=== PATIENT | female | born 1950 | race Caucasian/White ===

== ENCOUNTER → 2018-04-17 | Outpatient (CLI) | payer MEDICARE, BC ==
[2018-04-17 11:27] LABS: T4, Free (Free Thyroxine) 1.53 ng/dL (0.78-2.19)
== END | disposition home or self-care (01) ==
LOC: LABWHC1 10:20
PROVIDERS: ATTEND Otolaryngology
DX: E04.1 Nontoxic single thyroid nodule (principal)
CPT/HCPCS: 36415; 84439; 84443; 86376

== ENCOUNTER → 2018-04-20 | Outpatient (CLI) | payer MEDICARE, BC ==
--- NOTE | 2018-04-20 11:53 | US ---
EXAMINATION TYPE: US thyroid st tissue head/neck DATE OF EXAM: 04/20/2018 COMPARISON: NONE CLINICAL HISTORY: E04.1 Thyroid nodule. GLAND SIZE: Right Lobe: 5.3 x 1.4 x 1.7 cm Overall Parenchyma: homogenous Left Lobe: 4.1 x 1.6 x 1.8 cm Overall Parenchyma: homogeneous Isthmus Thickness: 0.4 cm NODULES RIGHT: # of nodules measured on right: 3 1. 0.9 X 0.5 x 0.8 cm hypoechoic solid nodule at the upper pole with well-defined margins; . This nodule is wider than tall and shows intranodular vascularity. Prior size: no prior 2. 0.4 X 0.2 x 0.4 cm hypoechoic solid nodule at the mid pole with well-defined margins; . This nod ule is wider than tall and shows no intranodular vascularity. Prior size: no prior 3. 0.5 X 0.3 x 0.5 cm hypoechoic solid nodule at the lower pole with well-defined margins; . This n odule is wider than tall and shows intranodular vascularity. Prior size: no prior LEFT: # of nodules measured on left: 1 1. 1.5 X 1.2 x 1.7 cm isoechoic mixed nodule at the lower pole with well-defined margins; . This n odule is wider than tall and shows intranodular vascularity. Prior size: ISTHMUS: # of nodules measured in the isthmus: 0 Bilateral neck scanned, no evidence of lymphadenopathy. Nodules as described. IMPRESSION: Nonspecific solid nodule left thyroid lobe. Consider tissue diagnosis.
== END | disposition home or self-care (01) ==
LOC: RADUSWWP 10:48
PROVIDERS: ATTEND Otolaryngology
DX: E04.1 Nontoxic single thyroid nodule (principal)
CPT/HCPCS: 76536

== ENCOUNTER 2018-05-04 06:59 | Day surgery (SDC) | payer MEDICARE, BC ==
[2018-05-04] MEDS ORDERED: ALPRAZolam 0.25 MG TAB PO ONE (08:41)
[2018-05-04 08:50] VITALS: RESP 18; TEMP 97.6
[2018-05-04 09:38] VITALS: BP 121/68; PULSE 60
--- NOTE | 2018-05-04 11:48 | US ---
EXAMINATION TYPE: US FNA thyroid DATE OF EXAM: 05/04/2018 COMPARISON: Ultrasound 04/20/2018 HISTORY: Thyroid nodule. Maximal barrier technique was utilized. After informed consent, skin overlying the lesion was locali zed with ultrasound and the overlying skin prepped and draped. Ultrasound was utilized using sterile technique. Lidocaine was used for local anesthesia. Five passes with a 25-gauge needle were made int o the nodule and aspirated specimen was submitted to cytology. Following the procedure hemostasis ac hieved. No immediate complication. The patient discharged in stable condition. IMPRESSION: STATUS POST ULTRASOUND GUIDED FINE NEEDLE ASPIRATION OF THYROID NODULE, PATHOLOGY IS PEND ING. THIS PROCEDURE WAS PERFORMED BY THE UNDERSIGNED.
== END 2018-05-04 09:50 | disposition home or self-care (01) ==
LOC: RADPROMAIN 06:59
PROVIDERS: ATTEND Otolaryngology
DX: E04.1 Nontoxic single thyroid nodule (principal)
CPT/HCPCS: 10022; 36415; 70553; 76942; 82565; 88173; 88305

== ENCOUNTER → 2018-05-04 | Outpatient (CLI) | payer MEDICARE, BC ==
--- NOTE | 2018-05-04 08:41 | MR ---
EXAMINATION TYPE: MR brain and iac wo/w con DATE OF EXAM: 05/04/2018 COMPARISON: None HISTORY: Tinnitus / Hearing loss / TECHNIQUE: Multiplanar, multisequence images of the brain and brainstem is performed without and with IV contras t, utilizing 7 mL intravenous Gadavist . FINDINGS: Diffusion weighted images demonstrate no evidence of a recent infarct or other diffusion ab normality. White matter: There are numerous bilateral areas of abnormal signal scattered throughout the white ma tter bilaterally. Changes of chronic sinusitis and nasal septal deviation noted. No midline shift or mass effect. The mastoid air cells are clear. There is no evidence of cerebellopontine angle mass. The ventricular system and cisternal spaces are normal in size and appearance. The brain volume is age appropriate. Midline structures demonstrate normal morphology. The craniocervical junction appears within normal limits. Post contrast images demonstrate no abnormal enhancement. The dural venous sinuses appear pa tent. There is mild prominence of the basilar tip. Pituitary gland is prominent measuring 8 mm. Homog eneous enhancement IMPRESSION: 1. No evidence of acoustic schwannoma or cerebellopontine angle mass. 2. Diffuse nonspecific white matter changes. Differential diagnosis includes remote microvascular isc hemia. Other etiologies including demyelinating process not entirely excluded. 3. Recommend MRA [place] to assess the basilar tip which demonstrates mild prominence.
== END | disposition home or self-care (01) ==
LOC: RADMRIMAIN 06:50
PROVIDERS: ATTEND Otolaryngology
DX: R90.89 Other abnormal findings on diagnostic imaging of central nervous system (principal)
CPT/HCPCS: 82565; 70553; 36415; A9581

== ENCOUNTER → 2018-05-29 | Outpatient (CLI) | payer MEDICARE, BC ==
--- NOTE | 2018-05-30 01:13 | MR ---
EXAMINATION TYPE: MR angio head wo con DATE OF EXAM: 05/29/2018 COMPARISON: 05/04/2018 HISTORY: F/U from Prior MRI of Brain TECHNIQUE: Time of flight images focusing on the [place] were performed without contrast. FINDINGS: There is arterial flow in the anterior middle and posterior cerebral arteries. There is art erial flow in the vertebrobasilar artery system. There is a bulbous tip of the basilar artery. This m easures 4.5 mm. The basilar artery measures 2.2 mm. No other aneurysmal change is seen. 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
== END | disposition home or self-care (01) ==
LOC: RADMRIMAIN 20:11
PROVIDERS: ATTEND Otolaryngology
DX: R49.0 Dysphonia (principal); I72.5 Aneurysm of other precerebral arteries
CPT/HCPCS: 70544

== ENCOUNTER → 2018-07-05 | Outpatient (CLI) | payer MEDICARE, BC ==
[2018-07-06 02:21] LABS: Parathyroid Hormone Intact 55.4 pg/mL (14.0-72.0)
[2018-07-06 02:26] LABS: Vitamin D 25 Hydroxy 28.3 ng/mL (30.0-100.0)
[2018-07-06 02:31] LABS: Albumin 4.3 g/dL (3.80-4.90); Albumin/Globulin Ratio 1.87 (1.20-2.10); Anion Gap 9.2 mmol/L (4.00-12.00); Carbon Dioxide 24.8 mmol/L (21.6-31.8); Globulin 2.3 g/dL (2.1-3.7); Potassium 4.6 mmol/L (3.5-5.5); Total Bilirubin 0.4 mg/dL (0.2-1.2); Total Protein 6.6 g/dL (6.2-8.2)
== END | disposition home or self-care (01) ==
LOC: LABWHC1 15:38
PROVIDERS: ATTEND Internal Medicine Endocrinology, Diabetes & Metabolism
DX: M81.0 Age-related osteoporosis without current pathological fracture (principal)
CPT/HCPCS: 36415; 80053; 82306; 82523; 83970; 84443

== ENCOUNTER → 2018-12-03 | Outpatient (CLI) | payer MEDICARE, BC ==
--- NOTE | 2018-12-03 10:59 | US ---
EXAMINATION TYPE: US thyroid st tissue head/neck DATE OF EXAM: 12/03/2018 COMPARISON: US 04/20/2018 CLINICAL HISTORY: E04.1 Nontoxic single thyroid nodule. GLAND SIZE: Right Lobe: 5.3 x 1.5 x 1.5 cm Overall Parenchyma: homogenous Left Lobe: 4.3 x 1.5 x 1.7 cm Overall Parenchyma: homogeneous Isthmus Thickness: 0.4 cm NODULES RIGHT: # of nodules measured on right: 4 1. 1.0 X 0.4 x 0.7 cm hypoechoic solid nodule at the upper pole with well-defined margins; . This nodule is wider than tall and shows intranodular vascularity. Prior size: 0.9 x 0.5 x 0.8 cm likely under measured on prior exam 2. 0.4 X 0.2 x 0.4 cm hypoechoic solid nodule at the mid pole with well-defined margins; . This nod ule is wider than tall and shows no intranodular vascularity. Prior size: 0.4 x 0.2 x 0.4 cm 3. 0.4 X 0.2 x 0.4 cm hypoechoic cystic nodule at the mid pole with well-defined margins; . This no dule is wider than tall and shows no intranodular vascularity. Prior size: Not previously visualized 4. 0.4 X 0.3 x 0.4 cm hypoechoic mixed nodule at the lower pole with well-defined margins; . This n odule is wider than tall and shows no intranodular vascularity. Prior size: 0.5 x 0.3 x 0.5 cm LEFT: # of nodules measured on left: 1- previously biopsied 1. 1.7 X 1.2 x 1.6 cm hypoechoic mixed nodule at the mid pole with well-defined margins; . This no dule is wider than tall and shows intranodular vascularity. Prior size: 1.5 x 1.2 x 1.7 cm ISTHMUS: # of nodules measured in the isthmus: 0 Bilateral neck scanned, no evidence of lymphadenopathy. IMPRESSION: Essentially stable exam, findings compatible with multinodular goiter
== END ==
LOC: RADUSWWP 08:06
PROVIDERS: ATTEND Otolaryngology
DX: E04.1 Nontoxic single thyroid nodule (principal)
CPT/HCPCS: 76536

== ENCOUNTER → 2019-10-22 | Outpatient (CLI) | payer MEDICARE, BC ==
[2019-10-22 17:29] LABS: African American GFR (CKD) 76.1 (60.0-200.0); Albumin 4.4 g/dL (3.80-4.90); Anion Gap 12.8 mmol/L (4.00-12.00); BUN/Creat Ratio 15.56 Ratio (12.00-20.00); Calcium 9.3 mg/dL (8.7-10.3); Carbon Dioxide 22.2 mmol/L (21.6-31.8); Globulin 2.2 g/dL (1.6-3.3); Non-African American GFR(CKD) 65.7 (60.0-200.0); Potassium 4.4 mmol/L (3.5-5.5); Total Bilirubin 0.6 mg/dL (0.3-1.2); Total Protein 6.6 g/dL (6.2-8.2)
== END | disposition home or self-care (01) ==
LOC: LABWHC1 10:46
PROVIDERS: ATTEND Internal Medicine Endocrinology, Diabetes & Metabolism
DX: N20.0 Calculus of kidney (principal)
CPT/HCPCS: 36415; 80053; 83970

== ENCOUNTER → 2020-01-17 | Outpatient (CLI) | payer MEDICARE, BC ==
--- NOTE | 2020-01-17 17:17 | US ---
EXAMINATION TYPE: US thyroid st tissue head/neck DATE OF EXAM: 01/17/2020 COMPARISON: US 2019 CLINICAL HISTORY: nodule. Thyroid nodule, history of thyroid FNA GLAND SIZE: Right Lobe: 5.1 x 1.5 x 1.4 cm Overall Parenchyma: homogenous Left Lobe: 4.5 x 1.4 x 1.6 cm Overall Parenchyma: homogeneous Isthmus Thickness: 0.3 cm NODULES RIGHT: # of nodules measured on right: 1 1. 0.9 X 0.5 x 0.7 cm hypoechoic solid nodule at the upper pole with well-defined margins. This nod ule is wider than tall and shows intranodular vascularity. Prior size: 1.0 x 0.4 x 0.7 cm LEFT: # of nodules measured on left: 1 1. 1.5 X 1.3 x 1.4 cm hypoechoic mixed nodule at the lower pole with well-defined margins. This nod ule is wider than tall and shows intranodular vascularity. Prior size: 1.7 x 1.2 x 1.6 cm ISTHMUS: # of nodules measured in the isthmus: 0 Bilateral neck scanned, no evidence of lymphadenopathy. IMPRESSION: 1. Bilateral thyroid nodules, slightly smaller than comparison
== END | disposition home or self-care (01) ==
LOC: RADUSWWP 14:44
PROVIDERS: ATTEND Otolaryngology
DX: E04.2 Nontoxic multinodular goiter (principal)
CPT/HCPCS: 76536

== ENCOUNTER → 2020-02-28 | Outpatient (CLI) | payer MEDICARE, BC ==
--- NOTE | 2020-02-28 10:11 | CT ---
EXAMINATION TYPE: CT hip LT wo con DATE OF EXAM: 02/28/2020 COMPARISON: None available HISTORY: 69-year-old female Left hip and thigh pain TECHNIQUE: Contiguous axial scanning of the left hip without IV contrast. Coronal and sagittal recons tructions performed. CT DLP: 393.3 mGycm Automated exposure control for dose reduction was used. FINDINGS: Small 9 mm corticated bone density adjacent to the lateral facet of the greater trochanter. No signif icant gluteal muscle atrophy. Mild degenerative spurring at the left hip joint. No significant hip joint effusion seen. No acute fracture or dislocation. Osteitis pubis. No periostitis or osteolysis. Bony spurring at the hamstrings origin incidentally noted suggesting so me chronic tendinopathy. Multiple pelvic phleboliths. Anteverted uterus. Sigmoid diverticulosis. IMPRESSION: 1. MILD LEFT HIP OA. NO ACUTE OSSEOUS ABNORMALITY SEEN. 2. OSTEITIS PUBIS. 3. SMALL 9 MM CORTICATED BONE DENSITY ADJACENT TO THE LATERAL FACET OF THE GREATER TROCHANTER. SUSPEC T AN OLD FRAGMENTED SPUR. 3. SIGMOID DIVERTICULOSIS.
--- NOTE | 2020-03-02 14:41 | NM ---
EXAMINATION TYPE: NM bone scan whole body DATE OF EXAM: 02/28/2020 COMPARISON: NONE HISTORY: Left hip pain Delayed whole-body scanning was performed following the injection of 23.9 mCi Tc 99m MDP. Images acq uired 3 hours post injection. FINDINGS: There is mild increased uptake noted in the region of the lesser trochanter which could reflect a sma ll area of stress fracture. Otherwise there is degenerative uptake noted to involve the sternoclavicu lar joints, shoulders and lumbar spine. IMPRESSION: There is mild increased uptake noted in the region of the lesser trochanter which could reflect a sma ll area of stress fracture.
== END | disposition home or self-care (01) ==
LOC: RADCTMAIN 09:25
PROVIDERS: ATTEND Orthopaedic Surgery
DX: M16.12 Unilateral primary osteoarthritis, left hip (principal); K57.30 Diverticulosis of large intestine without perforation or abscess without bleeding; M86.9 Osteomyelitis, unspecified
CPT/HCPCS: 73700; 78306; A9503

== ENCOUNTER → 2021-01-07 | Outpatient (CLI) | payer MEDICARE, BC ==
--- NOTE | 2021-01-07 10:48 | US ---
EXAMINATION TYPE: US thyroid st tissue head/neck DATE OF EXAM: 01/07/2021 COMPARISON: 01/17/2020 CLINICAL HISTORY: E04.3 THYROID NODULE. follow up thyroid nodules GLAND SIZE: Right Lobe: 5.2 x 1.6 x 2.1 cm Overall Parenchyma: homogenous Left Lobe: 3.9 x 1.5 x 1.9 cm Overall Parenchyma: homogeneous Isthmus Thickness: 0.4 cm NODULES RIGHT: # of nodules measured on right: 1 1. 1.0 X 0.6 x 0.9 cm, upper , solid, hypoechoic nodule, which is wider than tall, with smooth lucas ins, without echogenic foci. Prior size: 0.9 x 0.5 x 0.7 cm LEFT: # of nodules measured on left: 1 1. 1.6 X 1.3 x 1.6 cm, lower , mixed, hypoechoic nodule, which is wider than tall, with smooth lucas ins, without echogenic foci. Prior size: 1.5 x 1.3 x 1.4 cm ISTHMUS: # of nodules measured in the isthmus: 0 Bilateral neck scanned, no evidence of lymphadenopathy. IMPRESSION: Stable appearance of thyroid nodules. 2017 ACR TI-RADS LEVEL: 3 *Highest TI-RADS level nodule reported
== END | disposition home or self-care (01) ==
LOC: RADUSWWP 10:10
PROVIDERS: ATTEND Otolaryngology
DX: E04.2 Nontoxic multinodular goiter (principal)
CPT/HCPCS: 76536

== ENCOUNTER → 2022-02-01 | Outpatient (CLI) | payer MEDICARE, BC ==
--- NOTE | 2022-02-01 19:02 | US ---
EXAMINATION TYPE: US thyroid st tissue head/neck DATE OF EXAM: 02/01/2022 COMPARISON: US 2020 CLINICAL HISTORY: 71-year-old female E04.1 THYROID NODULE. GLAND SIZE: Right Lobe: 5.1 x 1.5 x 1.6 cm Overall Parenchyma: homogenous Left Lobe: 4.3 x 1.5 x 1.6 cm Overall Parenchyma: homogeneous Isthmus Thickness: 0.3 cm NODULES RIGHT: # of nodules measured on right: 1 1. 0.9 X 0.6 x 0.8 cm, lower lateral, solid or almost completely solid, TR 4 hypoechoic nodule, whi ch is wider than tall, with smooth margins, without echogenic foci. Prior size: 1.0 x 0.6 x 0.9 cm LEFT: # of nodules measured on left: 1 1. 1.5 X 1.2 x 1.3 cm, lower mid, solid or almost completely solid, hypoechoic TR 4 nodule, which i s wider than tall, with smooth margins, without echogenic foci. Prior size: 1.6 x 1.3 x 1.6 cm ISTHMUS: # of nodules measured in the isthmus: 0 Bilateral neck scanned, no evidence of lymphadenopathy. IMPRESSION: A solid TR4 nodule on either side measuring 9 mm on the right and 1.5 cm on the left remain stable.
== END | disposition home or self-care (01) ==
LOC: RADUSWWP 14:57
PROVIDERS: ATTEND Otolaryngology
DX: E04.1 Nontoxic single thyroid nodule (principal)
CPT/HCPCS: 76536

== ENCOUNTER → 2022-04-12 | Outpatient (CLI) | payer MEDICARE, BC ==
[2022-04-12 14:41] LABS: T4, Free (Free Thyroxine) 1.69 ng/dL (0.800-1.800)
== END | disposition home or self-care (01) ==
LOC: LABWHC1 09:08
PROVIDERS: ATTEND Otolaryngology
DX: E04.1 Nontoxic single thyroid nodule (principal); R53.83 Other fatigue
CPT/HCPCS: 36415; 84439; 84443

== ENCOUNTER 2022-05-10 10:20 | Day surgery (SDC) | payer MEDICARE, BC ==
[2022-05-06 13:39] VITALS: BMI 29.2
[~2022-05-10 10:20] MED LIST: LACTATED RINGERS 1,000 ML IV SCH; LIDOCAINE 1% (10MG/ML) FOR IV START INTRADERMA PRN
[2022-05-10 10:54] VITALS: TEMP 96.9
[2022-05-10] MEDS ORDERED: LIDOCAINE 2% INJ 20 MG/ML (2 ML VIAL) ONE (11:39)
[2022-05-10] MEDS ORDERED: PROPOFOL 10 MG/ML 20 ML VIAL IV ONE (11:39)
--- NOTE | 2022-05-10 11:58 | P.PCN ---
Date of Procedure: 05/10/22 Procedure(s) Performed: BRIEF HISTORY: Patient is a 71-year-old pleasant white female scheduled for an elective colonoscopy as a part of evaluation of prior history of colon polyps. Last colonoscopy was 5 years ago. PROCEDURE PERFORMED: Colonoscopy. PREOPERATIVE DIAGNOSIS: History of colon polyps. IV sedation per Anesthesia. PROCEDURE: After informed consent was obtained, the patient, was brought into the endoscopy unit. IV sedation was administered by Anesthesia under continuous monitoring. Digital rectal examination was normal. Initially the Olympus CF-160 flexible video colonoscope was then inserted in the rectum, gradually advanced into the cecum without any difficulty. Careful examination was performed as the scope was gradually being withdrawn. Ileocecal valve and the appendiceal orifice were visualized and appeared normal. Prep was excellent. Mucosa of the cecum, ascending colon, transverse colon, descending colon, sigmoid colon, and rectum appeared normal. Scattered sigmoid diverticulosis. Retroflexion was performed in the rectum and no lesions were seen. The patient tolerated the procedure well. IMPRESSION: Normal-appearing colon from rectum to cecum with no evidence of colorectal neoplasia . Scattered sigmoid diverticula RECOMMENDATIONS: Findings of this examination were discussed with the patient as well as a family. She was advised to have a repeat screening colonoscopy in 10 years..
[2022-05-10 12:37] VITALS: BP 118/67; PULSE 56; RESP 18
== END 2022-05-10 12:43 | disposition home or self-care (01) ==
LOC: ORWHC2ENDO 10:20
PROVIDERS: ATTEND Internal Medicine Gastroenterology
DX: Z12.11 Encounter for screening for malignant neoplasm of colon (principal); K57.30 Diverticulosis of large intestine without perforation or abscess without bleeding; E78.5 Hyperlipidemia, unspecified; K21.9 Gastro-esophageal reflux disease without esophagitis; Z79.899 Other long term (current) drug therapy; Z86.010 Personal history of colon polyps
CPT/HCPCS: J2704; J2001; G0121; 45378

== ENCOUNTER → 2023-01-18 | Outpatient (CLI) | payer MEDICARE, BC ==
--- NOTE | 2023-01-18 13:44 | US ---
EXAMINATION TYPE: US thyroid st tissue head/neck DATE OF EXAM: 01/18/2023 COMPARISON: NONE CLINICAL INDICATION: Female, 72 years old with history of E04.1 thyroid nodule; f/u exam GLAND SIZE: Right Lobe: 4.1 x 1.4 x 1.6 cm Overall Parenchyma: heterogenous Left Lobe: 4.3 x 1.5 x 1.7 cm Overall Parenchyma: heterogenous Isthmus Thickness: 0.4 cm NODULES RIGHT: # of nodules measured on right: 1 1. 1.1 X 0.7 x 0.6 cm, upper , Prior size: 1.0 x 0.6 x 0.9 cm TIRADS Score: 4 TIRADS Category 4: Moderately Suspicious Composition: Solid or almost completely solid (2 points). Echogenicity: Hypoechoic (2 points). Shape: Wider than tall (0 points). Margin: Smooth (0 points). Echogenic foci: None or large comet-tail artifacts (0 points) Recommendation: If >1.5cm: FNA; If >1cm: Follow up at 1,2, 3,5 years LEFT: # of nodules measured on left: 1 1. 1.3 X 1.4 x 1.5 cm, lower, Prior size: 1.5 x 1.2 x 1.3 cm TIRADS Score: 4 TIRADS Category 4: Moderately Suspicious Composition: Solid or almost completely solid (2 points). Echogenicity: Hypoechoic (2 points). Shape: Wider than tall (0 points). Margin: Smooth (0 points). Echogenic foci: None or large comet-tail artifacts (0 points) Recommendation: If >1.5cm: FNA; If >1cm: Follow up at 1,2, 3,5 years Previously biopsied in 2018. ISTHMUS: # of nodules measured in the isthmus: 0 Bilateral neck scanned, no evidence of lymphadenopathy. IMPRESSION: Stable thyroid nodules, the left thyroid nodule was presented mass effect in 2018.
== END | disposition home or self-care (01) ==
LOC: RADUSWWP 09:30
PROVIDERS: ATTEND Otolaryngology
DX: E04.2 Nontoxic multinodular goiter (principal)
CPT/HCPCS: 76536